=== PATIENT | female | born 1960 ===

== ENCOUNTER 2017-10-31 19:43 | Emergency (ER) | payer OTHER ==
[~2017-10-31] VITALS: Ht 160 cm; Wt 70.3 kg
[~2017-10-31 19:43] MED LIST: DOLOGESIC CAPSU1 CAP PO
== END 2017-10-31 21:55 | disposition home or self-care (01) ==
LOC: ER 19:43
DX: S60.212A Contusion of left wrist, initial encounter (principal); W18.39XA Other fall on same level, initial encounter; Y93.89 Activity, other specified; Y92.89 Other specified places as the place of occurrence of the external cause; Y99.8 Other external cause status

== ENCOUNTER 2018-03-31 13:31 | Emergency (ER) | payer OTHER ==
[~2018-03-31] VITALS: Ht 160 cm; Wt 71.7 kg
[2018-03-31] MEDS ORDERED: COZAAR25 MG (13:41)
== END 2018-03-31 16:19 | disposition home or self-care (01) ==
LOC: ER 13:31
DX: M54.2 Cervicalgia (principal)

== ENCOUNTER 2019-07-04 17:15 | Emergency (ER) | payer OTHER ==
[~2019-07-04] VITALS: Ht 157.5 cm; Wt 64.9 kg
[~2019-07-04 17:15] MED LIST changes: +COZAAR25 MG
[2019-07-04] MEDS ORDERED: TESSALON PERLE100 M1 PO (20:38)
[2019-07-04] MEDS ORDERED: ZITHROMAX500 MG PO (20:38)
[2019-07-04] MEDS ORDERED: IPRAT-ALBUT 0.5-3 ML IH (20:38)
[2019-07-04] MEDS ORDERED: MUCINEX DM ER1 EAC1 PO (20:38)
[2019-07-04] MEDS ORDERED: COZAAR25 MG PO (20:39)
== END 2019-07-04 22:28 | disposition home or self-care (01) ==
LOC: ER 17:15
DX: J06.9 Acute upper respiratory infection, unspecified (principal); J35.01 Chronic tonsillitis

== ENCOUNTER 2020-04-12 12:52 | Emergency (ER) | payer OTHER ==
[~2020-04-12] VITALS: Ht 160 cm; Wt 70.8 kg
[~2020-04-12 12:52] MED LIST changes: +COZAAR25 MG PO; +IPRAT-ALBUT 0.5-3 ML IH; +MUCINEX DM ER1 EAC1 PO; +TESSALON PERLE100 M1 PO; +ZITHROMAX500 MG PO
== END 2020-04-12 17:27 | disposition home or self-care (01) ==
LOC: ER 12:52
DX: S00.83XA Contusion of other part of head, initial encounter (principal); S13.9XXA Sprain of joints and ligaments of unspecified parts of neck, initial encounter; W18.39XA Other fall on same level, initial encounter; Y93.89 Activity, other specified; Y92.098 Other place in other non-institutional residence as the place of occurrence of the external cause; Y99.8 Other external cause status

== ENCOUNTER 2020-09-22 09:26 | Emergency (ER) | payer OTHER ==
[~2020-09-22] VITALS: Ht 160 cm; Wt 72.1 kg
[2020-09-22] MEDS ORDERED: DURACHOL 3,7751 EACH PO (09:33)
[2020-09-22] MEDS ORDERED: VITAMIN C500 M6 (09:33)
== END 2020-09-22 17:24 ==
LOC: ER 09:26
DX: R53.81 Other malaise (principal); D69.49 Other primary thrombocytopenia

== ENCOUNTER 2021-05-07 15:08 | Emergency (ER) | payer OTHER ==
[~2021-05-07] VITALS: Ht 160 cm; Wt 73.5 kg
[~2021-05-07 15:08] MED LIST changes: +DURACHOL 3,7751 EACH PO; +VITAMIN C500 M6
== END 2021-05-07 20:49 | disposition home or self-care (01) ==
LOC: ER 15:08
DX: U07.1 COVID-19 (principal); J02.9 Acute pharyngitis, unspecified; J06.9 Acute upper respiratory infection, unspecified; B34.9 Viral infection, unspecified; R53.81 Other malaise

== ENCOUNTER 2021-05-09 08:25 | Outpatient (CLI) | payer OTHER | END 2021-05-09 13:00 | disposition home or self-care (01) | LOC: ASH CLINIC 08:25 | PROVIDERS: ATTEND General Practice | DX: Z23 Encounter for immunization (principal); U07.1 COVID-19 ==

== ENCOUNTER 2021-12-29 18:50 | Emergency (ER) | payer OTHER ==
[~2021-12-29] VITALS: Ht 160 cm; Wt 72.6 kg
== END 2021-12-30 | disposition home or self-care (01) ==
LOC: ER 18:50
DX: U07.1 COVID-19 (principal); I10 Essential (primary) hypertension; Z88.6 Allergy status to analgesic agent

== ENCOUNTER 2022-02-20 06:58 | Emergency (ER) | payer OTHER ==
[~2022-02-20] VITALS: Ht 160 cm; Wt 72.6 kg
== END 2022-02-20 14:59 | disposition home or self-care (01) ==
LOC: ER 06:58
DX: M25.561 Pain in right knee (principal)

== ENCOUNTER → 2023-01-23 | Emergency (ER) | payer OTHER ==
[~2023-01-23] VITALS: Ht 170.2 cm; Wt 74.8 kg
== END | disposition left against medical advice (07) ==
LOC: ER 18:05
DX: Z53.21 Procedure and treatment not carried out due to patient leaving prior to being seen by health care provider (principal)